=== PATIENT | male | born 1970 | race Caucasian/White ===

== ENCOUNTER 2016-07-10 10:10 | Emergency (ER) | payer OTHER ==
--- NOTE | 2016-07-10 11:20 | Emergency Department Record ---
History of Present Illness - General Chief Complaint: Back Pain/Injury Stated Complaint: BACK PAIN Time Seen by Provider: 07/10/16 11:13 Source: Patient Mode of Arrival: Ambulatory Limitations: No limitations - History of Present Illness Initial Comments: 45 yo male presents with low back pain since yesterday. He reports he was painting a banister yesterday with bending over a good portion of that time. No weakness, numbness, changes in bowel or bladder function. No radiating pains down the legs. No weakness or numbness. No falls or blunt trauma. MD Complaint: Back pain, Back injury Onset/Timin -: Days(s) Similar Symptoms Previously: No Place: Home Radiation: None Severity scale (1-10): 10 Quality: Sharp Consistency: Intermittent Improves With: Immobilization Worsens With: Movement Context: Bending Associated Symptoms: Denies other symptoms Treatments Prior to Arrival: Acetaminophen Treatment Prior to Arrival Comment:: 2 Extra strength 2 hours ago - Related Data Home Medications Medication Instructions Recorded Confirmed Last Taken Atorvastatin Calcium [Lipitor] 10 mg PO QHS 07/10/16 07/10/16 07/09/16 Desvenlafaxine Succinate [Pristiq 25 mg PO DAILY 07/10/16 07/10/16 07/10/16 ER] Lisinopril [Zestril] 5 mg PO DAILY 07/10/16 07/10/16 07/10/16 Previous Rx's Medication Instructions Recorded Cyclobenzaprine HCl [Flexeril] 10 mg PO TID #15 tablet 07/10/16 Hydrocodone/Acetaminophen [[place] 1 tab PO Q6H PRN #10 tab 07/10/16 5mg/325mg] Naproxen [Naprosyn] 500 mg PO Q12H #30 tab. 07/10/16 Allergies Allergy/AdvReac Type Severity Reaction Status Date / Time No Known Drug Allergies Allergy Verified 07/10/16 10:49 Travel Screening - Travel/Exposure Within Last 30 Days Have you traveled within the last 30 days?: No - Travel/Exposure Within Last Year Have you traveled outside the [place] in the last year?: No - Additonal Travel Details Have you been exposed to anyone with a communicable illness?: No - Travel Symptoms Symptom Screening: None Review of Systems Constitutional: Denies: Chills, Fever, Malaise, Weakness Eyes: Denies: Eye discharge ENT: Denies: Congestion, Throat pain Respiratory: Denies: Cough Cardiovascular: Denies: Chest pain, Palpitations, Syncope Endocrine: Denies: Fatigue, Polydipsia, Polyuria Gastrointestinal: Denies: Abdominal pain, Diarrhea, Nausea, Vomiting Musculoskeletal: Reports: Back pain, Myalgia. Denies: Arthralgia, Joint swelling, Neck pain Skin: Denies: Bruising, Change in color, Rash Neurological: Denies: Confusion, Headache Psychiatric: Denies: Anxiety Hematological/Lymphatic: Denies: Blood Clots, Easy bleeding, Easy bruising, Swollen glands Past Medical History - SOCIAL HISTORY Smoking Status: Never smoker Alcohol Use: None Drug Use: None - RESPIRATORY Hx Respiratory Disorders: No - CARDIOVASCULAR Hx Cardio Disorders: No - NEURO Hx Neuro Disorders: No - GI Hx GI Disorders: No - Hx Genitourinary Disorders: Yes Hx Bladder Problem: Yes Comment:: repaired 4 years ago - ENDOCRINE Hx Endocrine Disorders: Yes Comment:: pre diabetes, taking lisinopril to protect kidneys - MUSCULOSKELETAL Hx Musculoskeletal Disorders: Yes Hx Back Injury: Yes ([facility] 4 yrs ago) Comment:: Not treated for it - PSYCH Hx Psych Problems: Yes Hx Depression: Yes - HEMATOLOGY/ONCOLOGY Hx Hematology/Oncology Disorders: No Family Medical History Any Significant Family History?: Yes Hx Cancer: Father *Cancer Comment: Aunt had breast cancer Physical Exam - General General Appearance: Alert, Oriented x3, Cooperative, No acute distress Limitations: No limitations - Head Head exam: Normal inspection - Eye Eye exam: Normal appearance, PERRL. negative: Conjunctival injection - ENT ENT exam: Normal exam Ear exam: Normal external inspection Nasal Exam: Normal inspection Mouth exam: Normal external inspection Teeth exam: Normal inspection Throat exam: Normal inspection - Neck Neck exam: Normal inspection, Full ROM. negative: Tenderness - Respiratory Respiratory exam: Normal lung sounds bilaterally. negative: Respiratory distress - Cardiovascular Cardiovascular Exam: Regular rate, Normal rhythm, Normal heart sounds - GI/Abdominal GI/Abdominal exam: Soft. negative: Distended, Tenderness - Rectal Rectal exam: Deferred - exam: Deferred - Extremities Extremities exam: Normal inspection, Full ROM, Normal capillary refill. negative: Calf tenderness, Joint swelling, Pedal edema, Tenderness - Back Back exam: Reports: Normal inspection, Muscle spasm (lumbar area), Paraspinal tenderness, Vertebral tenderness. Denies: CVA tenderness (R), CVA tenderness (L ), Full ROM (spasm), Rash noted - Neurological Neurological exam: Alert, CN II-XII intact, Normal gait, Oriented X3, Reflexes normal - Psychiatric Psychiatric exam: Normal affect, Normal mood - Skin Skin exam: Dry, Intact, Normal color, Warm Course Vital Signs 07/10/16 10:51 Temperature 98.9 F Pulse Rate 71 Respiratory 16 Rate Blood Pressure 101/46 Pulse Ox 98 - Reevaluation(s) Reevaluation #1: On recheck the patient is doing much better He has been up on his feet, walking an stretching We discussed home care and followup 07/10/16 12:18 Disposition Disposition: Discharge Clinical Impression: Lumbar back sprain Qualifiers: Encounter type: initial encounter Qualified Code(s): S33.5XXA - Sprain of ligaments of lumbar spine, initial encounter Disposition: Home, Self-Care Condition: (1) Good Instructions: Low Back Strain (ED) Additional Instructions: Return if worse, uncontrolled pain, weakness, numb or tingling or any new concerns Avoid driving on the medications as they can cause drowsiness. Prescriptions: Cyclobenzaprine HCl [Flexeril] 10 mg PO TID #15 tablet Naproxen [Naprosyn] 500 mg PO Q12H #30 tab. Hydrocodone/Acetaminophen [[place] 5mg/325mg] 1 tab PO Q6H PRN #10 tab PRN Reason: Pain - General Forms: Patient Portal Access Time of Disposition: 12:20
[2016-07-10] MEDS ORDERED: HYDROCODONE/APAP 7.5/325MG TABLET PO ONE (11:22)
[2016-07-10] MEDS ORDERED: ORPHENADRINE CITRATE 60MG/2ML VIAL IM ONE (11:22)
[2016-07-10] MEDS ORDERED: KETOROLAC 30 MG/ML VIAL IM ONE (11:22)
== END 2016-07-10 12:36 | disposition home or self-care (01) ==
LOC: ER 10:10
DX: S33.5XXA Sprain of ligaments of lumbar spine, initial encounter (principal); X50.1XXA Overexertion from prolonged static or awkward postures, initial encounter; Y93.89 Activity, other specified
CPT/HCPCS: 99283 ×2; 96372; J1885; J2360